=== PATIENT | female | born 1960 | race Caucasian/White ===

== ENCOUNTER 2019-05-26 10:16 | Inpatient (IN) | payer OTHER ==
[~2019-05-26] VITALS: Ht 160 cm; Wt 74.8 kg
[~2019-05-26 10:16] MED LIST: ASPIR 8181 MG PO; ATORVASTATIN CA80 MG PO; CRESTOR20 MG PO; GABA PO; GEMFIBROZIL600 MG PO; GLIPIZIDE XL10 MG PO; HYDRALAZINE HCL50 MG PO; JANUMET 50-1,01 EACH PO; JARDIANCE25 MG PO; METROPROLOL PO; ZESTRIL20 MG PO
[2019-05-27] MEDS ORDERED: NEURONTIN800 MG PO (10:24)
[2019-05-27] MEDS ORDERED: TOPROL XL100 M1 PO (10:24)
[2019-05-27] MEDS ORDERED: CLONAZEPAM0.5 MG PO (15:05)
[2019-05-27] MEDS ORDERED: COLACE100 MG PO (15:05)
[2019-05-27] MEDS ORDERED: ACETAMINOPHEN-1 EAC2 PO (15:05)
== END 2019-05-28 12:40 | disposition home or self-care (01) | DRG 473 ==
LOC: O/R 05-27 08:06 → SURG 05-27 08:06 → SURH 05-27 11:19 → SURG 05-27 16:03 → SURH 05-27 20:00 → SURG 05-28 12:40
PROVIDERS: ADMIT Orthopaedic Surgery Orthopaedic Surgery of the Spine
PROC: 0RT30ZZ Resection of Cervical Vertebral Disc, Open Approach (ICD-10-PCS; 2019-05-27)
PROC: 07DS3ZZ Extraction of Vertebral Bone Marrow, Percutaneous Approach (ICD-10-PCS; 2019-05-27)
PROC: 0RG20A0 Fusion of 2 or more Cervical Vertebral Joints with Interbody Fusion Device, Anterior Approach, Anterior Column, Open Approach (ICD-10-PCS; principal; 2019-05-27 20:00)
DX: M50.01 Cervical disc disorder with myelopathy, high cervical region (principal); I10 Essential (primary) hypertension